=== PATIENT | male | born 2000 | race Caucasian/White ===

== ENCOUNTER 2022-01-28 22:51 | Emergency (ER) | payer MEDICAID ==
[~2022-01-28] VITALS: Ht 180.3 cm; Wt 63.6 kg
[2022-01-28 23:12] VITALS: BP 120/83
== END 2022-01-28 23:21 ==
LOC: ER 22:52
DX: F14.90 Cocaine use, unspecified, uncomplicated (principal); R45.1 Restlessness and agitation; Z72.89 Other problems related to lifestyle; V89.2XXA Person injured in unspecified motor-vehicle accident, traffic, initial encounter; Y93.89 Activity, other specified; Y92.89 Other specified places as the place of occurrence of the external cause; Y99.8 Other external cause status
CPT/HCPCS: 99283